=== PATIENT | female | born 1975 | race Caucasian/White ===

== ENCOUNTER 2020-09-25 17:53 | Emergency (ER) | payer OTHER, SELFPAY ==
[2020-09-25 17:55] VITALS: BP 146/81; PULSE 71; RESP 18; TEMP 36.7; O2SAT 96; BMI 47.2
--- NOTE | 2020-09-25 18:04 | ED_ITS ---
HPI - Back Pain/Injury General: Chief Complaint: Back Pain/Injury Stated Complaint: fell/recent back surgery, lower back pain Time Seen by Provider: 09/25/20 18:04 History of Present Illness: HPI Narrative: Patient is a 45-year-old female comes to the ED with lower back pain after fall. Patient has past medical history of lumbar spine surgery back in July of this year. Patient says today she was walking down some steps and fell hitting her lower back. She is now complaining of having right-sided lower back pain that radiates down the right leg. Pain is rated a 10 out of 10. Denies any bladder or bowel incontinence, pelvic anesthesia or weakness to extremities. Associated symptoms: Deny abdominal pain, chills, dysuria, fatigue, fever(s), hematuria, nausea or vomiting Review of Systems Const: Denies: fever(s), chills or fatigue Eyes: Denies: change in vision or eye discomfort ENMT: Denies: throat pain, odynophagia, nasal discharge or nasal congestion Card: Denies: chest pain, palpitations, edema, swelling of feet/ankles, dyspnea on exertion or orthopnea Resp: Denies: dyspnea, productive cough or non-productive cough GI: Denies: abdominal pain, nausea, vomiting, diarrhea, constipation or hematochezia : Denies: flank pain, dysuria or hematuria Musc: Reports: back pain (Right sided lower back pain with pain radiating down right leg.); Denies: neck pain or extremity swelling Skin/Breast: Denies: rash or new lesions Neuro: Denies: headache(s), numbness in extremities or weakness in extremities Physical Exam Const: COMMON NORMALS: no acute distress, patient oriented x3 and alert GENERAL APPEARANCE: cooperative and comfortable HENMT: COMMON NORMALS: normocephalic HEAD & SCALP: normocephalic MOUTH: Normal oral and palatal mucosa present THROAT: posterior oropharynx normal and uvula midline Eye: COMMON NORMALS: Equal, round and reactive pupils present PUPIL: Yes Equal, round and reactive pupils present Neck/C-Spine: COMMON NORMALS: supple GENERAL: Yes normal visual inspection Resp: COMMON NORMALS: normal respiratory effort, No retractions, No use of accessory muscles and clear to auscultation bilaterally AUSCULTATION: clear to auscultation bilaterally Cardio: COMMON NORMALS: regular rate, regular rhythm, S1 normal heart sound present, S2 normal heart sound present, No gallops present (Cardio), No clicks present (Cardio), No murmurs present (Cardio) and Peripheral pulses 2+ throughout RATE: regular rate RHYTHM: regular rhythm HEART SOUNDS: S1 normal heart sound present and S2 normal heart sound present PERIPHERAL PULSES: Peripheral pulses 2+ throughout GI: COMMON NORMALS: Normal to inspection, nondistended, normoactive bowel sounds present, Soft to palpation, non-tender and no masses PALPATION: Yes Soft to palpation : COMMON NORMALS: Yes no CVA tenderness BLADDER/KIDNEY EXAM: Yes no CVA tenderness Back/Pelvis: COMMON NORMALS: no CVA tenderness LUMBAR SPINE/LOWER BACK: Yes pain with ROM, Yes paraspinal muscle tenderness and Yes straight leg raise positive left Extremity: COMMON NORMALS: normal to inspection and no pedal edema Neuro: COMMON NORMALS: patient oriented x3 and moves all extremities SENSO RIUM/ORIENTATION: Yes alert Skin: GENERAL SKIN EXAM: dry skin Course Vital Signs: Vital signs: Vital Signs Temperature 98.1 F 09/25/20 17:55 Pulse Rate 67 09/25/20 20:00 Respiratory Rate 14 09/25/20 20:00 Blood Pressure 149/86 09/25/20 20:00 Pulse Oximetry 97 09/25/20 20:00 MDM - Back Pain/Injury MDM Narrative: Medical decision making narrative: Patient is a 45-year-old female comes to the ED with lower back pain that radiates down into her right leg after a fall. Patient has a history of a recent lower back surgery within the last [address] of the lumbar spine shows no acute fractures and surgical site appears normal postop. Patient diagnosed with lumbar radiculopathy and given a shot of Toradol and Solu-Medrol while here in the ED. She was discharged with Robaxin and Medrol Dosepak. Patient told to follow-up with PCP in 7 to 10 days. Return to ED precautions given. Patient understood and agreed with plan. Imaging Data^: Other CT: Attestation: I personally reviewed and interpreted this imaging study as follows: Radiologist's impression: [address] [address] [address] Scan Report Signed Patient: Ambar Quesada Unit #: [id number] : 1975 Age/Sex: 45 / F ADM Date: 09/25/20 Loc: ER Room/Bed: Attending Dr: Ordering Provider/Ordering MD: Aaron Gaines Date of Service: 09/25/20 Procedure(s): CT lumbar spine wo con* [id number] Accession Number(s): [id number] Report Number: [id number] PROCEDURE INFORMATION: Exam: CT Lumbar Spine Without Contrast Exam date and time: 09/25/2020 6:28 PM Age: 45 years old Clinical indication: Injury or trauma; Fall; Blunt trauma (contusions or hematomas); Prior surgery; Surgery date: 1-6 months; Surgery type: L-spine SX in jul; Additional info: Fall with recent lumbar sugery TECHNIQUE: Imaging protocol: Computed tomography images of the lumbar spine without contrast. Radiation optimization: All CT scans at this facility use at least one of these dose optimization techniques: automated exposure control; mA and/or kV adjustment per patient size (includes targeted exams where dose is matched to clinical indication); or iterative reconstruction. COMPARISON: No relevant prior studies available. RADIATION DOSE METRICS: Total DLP (mGy-cm): 2715.5 FINDINGS: Vertebrae: There is dextroscoliosis. There is no acute fracture or subluxation. There is a satisfactory appearance of the postoperative changes at L5-S1 with pedicle screws, posterior rods and interbody spacer. There is severe endplate degenerative changes at L3-L4. There is a prominent Schmorl's node in the superior aspect of L4. Discs/Spinal canal/Neural foramina: There is a small disc bulge at L3-L4 without severe stenosis. There is mild foraminal narrowing. Sacrum/coccyx: There is symmetric moderate to severe degenerative changes in the sacroiliac joints. Soft tissues: Unremarkable. CT/CT lumbar spine wo con* [id number] IMPRESSION: No acute abnormality. There is a satisfactory appearance of the postoperative changes in the lumbar spine. No acute bony abnormality. Radiation Dose CTDIVOL = (mGy): DLP = 2715.5 (mGy-cm) Dictated By: Sirena Salguero Signed By: Sirena Salguero Signed Date/Time: 09/25/201917 DD/ 16 Discharge Plan Discharge Patient Disposition: Home Clinical Impression: Lumbar radiculopathy Condition: Stable Prescriptions: New methocarbamol 750 mg tablet 750 mg PO Q8H Qty: 30 RF: 0 Medrol (Ubaldo) 4 mg tablets,dose pack See Rx Instructions .ROUTE .COMPLEX Qty: 21 RF: 0 Discharge Orders: Discharge Order (Routine); Ordered 09/25/20 Ordered By: Aaron Gaines Discharge Diet: Regular Discharge Activity: Increase activity as tolerated Patient Instructions: Lumbar Radiculopathy (ED) Activity Restrictions/Additional Instructions: Follow-up with medical provider as directed in 7 to 10 days. Take medications as prescribed. Rest and ice sore spot on back. Return to the ER or your medical provider if condition worsens. Please read and understand discharge instructions. If any questions, please ask. Coding Level of Care Code ED Human Relations Professor for Francois Fwmuriel Exam Comprehensive
--- NOTE | 2020-09-25 18:10 | CTR_ITS ---
PROCEDURE INFORMATION: Exam: CT Lumbar Spine Without Contrast Exam date and time: 09/25/2020 6:28 PM Age: 45 years old Clinical indication: Injury or trauma; Fall; Blunt trauma (contusions or hematomas); Prior surgery; Surgery date: 1-6 months; Surgery type: L-spine SX in jul; Additional info: Fall with recent lumbar sugery TECHNIQUE: Imaging protocol: Computed tomography images of the lumbar spine without contrast. Radiation optimization: All CT scans at this facility use at least one of these dose optimization techniques: automated exposure control; mA and/or kV adjustment per patient size (includes targeted exams where dose is matched to clinical indication); or iterative reconstruction. COMPARISON: No relevant prior studies available. RADIATION DOSE METRICS: Total DLP (mGy-cm): 2715.5 FINDINGS: Vertebrae: There is dextroscoliosis. There is no acute fracture or subluxation. There is a satisfactory appearance of the postoperative changes at L5-S1 with pedicle screws, posterior rods and interbody spacer. There is severe endplate degenerative changes at L3-L4. There is a prominent Schmorl's node in the superior aspect of L4. Discs/Spinal canal/Neural foramina: There is a small disc bulge at L3-L4 without severe stenosis. There is mild foraminal narrowing. Sacrum/coccyx: There is symmetric moderate to severe degenerative changes in the sacroiliac joints. Soft tissues: Unremarkable. CT/CT lumbar spine wo con* [id number] IMPRESSION: No acute abnormality. There is a satisfactory appearance of the postoperative changes in the lumbar spine. No acute bony abnormality. Radiation Dose CTDIVOL = (mGy): DLP = 2715.5 (mGy-cm)
[2020-09-25] MEDS: ketorolac 60 mg/2 mL INJ IM (18:34)
[2020-09-25 20:00] VITALS: BP 149/86; PULSE 67; RESP 14; O2SAT 97
== END 2020-09-25 20:01 | disposition home or self-care (01) ==
PROVIDERS: Emergency Provider Physician Assistant
DX: M54.16 Radiculopathy, lumbar region (principal); W10.9XXA Fall (on) (from) unspecified stairs and steps, initial encounter; Z98.890 Other specified postprocedural states
CPT/HCPCS: 12345; 72131; 96372; 99281; 99283; J1885; J2930

== ENCOUNTER 2020-12-07 10:51 | Emergency (ER) | payer OTHER, SELFPAY ==
[2020-12-07] VITALS (7 sets, daily range): BP systolic 143–155; BP diastolic 59–85; PULSE 60–96; RESP 17–18; TEMP 36.3; O2SAT 98–99; BMI 44.4
--- NOTE | 2020-12-07 10:54 | XR_ITS ---
WS: [id number] Portable AP upright chest, 12/07/2020 Clinical Data: chest pain Comparison: None. Findings: No nodules, masses or effusions are seen. The heart is normal. The pulmonary vascularity is not increased. No pneumonia or pneumothorax is seen. Monitor leads are on the chest wall. XR/XR chest 1V portable [id number] Impression: Negative chest.
--- NOTE | 2020-12-07 10:54 | ECG_ITS ---
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 Measurements Intervals [place] Rate: 61 P: 47 MN: 180 QRS: 49 QRSD: 84 T: 32 QT: 393 QTc: 397 Interpretive Statements SINUS RHYTHM LOW QRS VOLTAGE IN PRECORDIAL LEADS [QRS DEFLECTION < 1.0 mV IN CHEST LEADS] SEPTAL MYOCARDIAL INFARCTION , OF INDETERMINATE AGE [40+ ms Q WAVE IN V1/V2] No previous ECG available for comparison Electronically Signed On 12-07-2020 19:11:46 DIAGRAMMER by Carlos Elena M.D. [id number] f
--- NOTE | 2020-12-07 11:19 | XR_ITS ---
WS: [id number] Sternum, 2 views, 12/07/2020 Clinical Data: sternal pain Comparison: None. Findings: The sternum is intact. No fractures are seen. There is no bone destruction or erosion. XR/XR sternum min 2V [id number] Impression: Negative sternum.
--- NOTE | 2020-12-07 11:24 | W.ED.CHESTPA ---
HPI - Chest Pain General: Chief Complaint: Chest Pain Stated Complaint: CHEST PAIN/TIGHTNESS Time Seen by Provider: 12/07/20 11:02 Source: patient Mode of arrival: ambulatory Limitations: no limitations History of Present Illness: HPI narrative: Patient is a 45-year-old female with a prior history of pleurisy who presents to the emergency department with complaints of sternal pain. Pain has been present for 2 days and has been constant. Pain is worse on deep inspiration. Pain is nonradiating, no dizziness, no diaphoresis, no nausea or vomiting. MD complaint: chest pain Onset (ago): day(s) (2) Timing of current episode: constant Prior episodes: No Onset: during rest Pain location: other (sternal) Pain radiation: none Severity: moderate Quality: sharp Relieving factors: nothing Exacerbating factors: movement Associated symptoms: Deny abdominal pain, diaphoresis, dyspnea, fever(s), leg edema, nausea, palpitations, sense of impending doom, syncope or vomiting Treatment prior to arrival: none Review of Systems General: Reports: 10 or more systems reviewed and unremarkable except in HPI and below Const: Denies: fever(s) or diaphoresis Eyes: Denies: change in vision or blurry vision ENMT: Denies: throat pain, enlarged tonsils, odynophagia, hoarseness, mouth pain or swelling of lips/tongue Card: Denies: palpitations or syncope Resp: Denies: dyspnea GI: Denies: abdominal pain, nausea or vomiting : Denies: flank pain, difficulty voiding, dysuria, urinary frequency, urinary urgency or urinary hesitancy Musc: Denies: neck pain, back pain or extremity swelling Skin/Breast: Denies: rash, pruritus or erythema Neuro: Denies: headache(s), numbness in extremities or weakness in extremities Endo: Denies: polyuria, polydipsia or tired all the time Physical Exam Const: COMMON NORMALS: no acute distress, average body habitus, patient oriented x3, no limitations, healthy appearing, alert and well nourished HENMT: COMMON NORMALS: normocephalic, atraumatic and moist oral mucous membranes HEAD & SCALP: normocephalic and atraumatic Neck/C-Spine: COMMON NORMALS: no meningeal signs and no JVD Chest: COMMONS NORMALS: normal inspection of the chest CHEST: Yes tenderness sternum Resp: COMMON NORMALS: normal respiratory effort, No retractions, No use of accessory muscles, clear to auscultation bilaterally and percussion normal AUSCULTATION: clear to auscultation bilaterally PERCUSSION: percussion normal Cardio: COMMON NORMALS: no JVD, regular rate, regular rhythm, S1 normal heart sound present, S2 normal heart sound present, No gallops present (Cardio), No clicks present (Cardio), No murmurs present (Cardio), No rub (Cardio) and Peripheral pulses 2+ throughout RATE: regular rate RHYTHM: regular rhythm HEART SOUNDS: S1 normal heart sound present and S2 normal heart sound present PERIPHERAL PULSES: Peripheral pulses 2+ throughout GI: COMMON NORMALS: Normal to inspection, nondistended, normoactive bowel sounds present, Soft to palpation, non-tender, No hepatosplenomegaly present, no masses and no bruits PALPATION: Yes Soft to palpation and Yes No hepatosplenomegaly present Extremity: COMMON NORMALS: normal to inspection, full ROM, capillary refill normal, no calf tenderness and no pedal edema Neuro: COMMON NORMALS: patient oriented x3 SENSORIUM/ORIENTATION: Yes alert MENINGEAL SIGNS: Yes no meningeal signs Course Reevaluation(s): Reevaluation #1: DIscussed her lab and imaging findings with her. Negative for acute findings. I believe she has costochondritis and will be managed as such. We will give her a prescription for prednisone to see if that helps but she is advised that she needs to manage it conservatively. She is to follow-up with her primary care provider. She voiced understanding and is in agreement with the plan. Time: 14:41 Vital Signs: Vital signs: Vital Signs Temperature 97.3 F L 12/07/20 10:56 Pulse Rate 66 12/07/20 15:00 Respiratory Rate 18 12/07/20 15:00 Blood Pressure 144/84 12/07/20 15:00 Pulse Oximetry 98 12/07/20 15:00 MDM - Chest Pain MDM Narrative: Medical decision making narrative: 45-year-old female patient with no prior cardiac history presents to the emergency department with chest pain. Evaluation in the emergency department is consistent with a musculoskeletal cause for her pain, likely costochondritis. She is managed conservatively with oral corticosteroids. She is discharged home and is to follow-up with her primary care provider. Medical Records: Attestation: I reviewed the patient's medical records. Lab Data: Attestation: I reviewed the patient's lab results. Labs: Lab Results 12/07/20 12/07/20 12/07/20 Range/Units 11:12 11:30 11:30 WBC 10.1 H (4.0-10.0) 10^3/ uL RBC 4.97 (4.1-5.3) 10^6/u L Hgb 14.2 (11.5-15.3) g/dL Hct 45.5 (37.0-47.0) % MCV 91.5 (81-99) fL MCH 28.6 (28.0-34.0) pg MCHC 31.2 (30.0-36.0) g/dL RDW 14.9 (12.1-15.1) % Plt Count 310 (130-400) 10^3/c mm MPV 10.0 (7.4-10.4) fL Neut % (Auto) 65.3 % Lymph % (Auto) 25.6 % [place] % (Auto) 5.2 % Eos % (Auto) 2.6 % Baso % (Auto) 0.6 % Neut # (Auto) 6.61 (1.8-7.7) 10^3/u L Lymph # (Auto) 2.6 (0.8-4.8) 10^3/u L [place] # (Auto) 0.5 (0.2-0.9) 10^3/u L Eos # (Auto) 0.3 (0.0-0.8) 10^3/u L Baso # (Auto) 0.1 (0.0-0.1) 10^3/u L Nucleated RBC % (a uto) 0 % Nucleated RBCs # 0.0 /100WBC D-Dimer 1.01 H (0-0.59) ug/mIFE U Sodium 140 (136-145) mmol/L Potassium 4.0 (3.5-5.1) mmol/L Chloride 101 (98-107) mmol/L Carbon Dioxide 31 H (22-29) mmol/L Anion Gap 12.0 (5-19) BUN 13 (6-20) mg/dL Creatinine 0.6 (0.5-0.9) mg/dL GFR Calculation 107.6 (90-130) mL/min Glucose 96 (65-115) mg/dL Calculated Osmolal ity 290 (285-295) mOsm/k g Calcium 9.4 (8.5-10.5) mg/dL Total Bilirubin 0.4 (0.15-1.2) mg/dL AST 27 (0-32) U/L ALT 29 (0-33) U/L Alkaline Phosphata se 122 H (35-105) IU/L Troponin T Baselin e (0-10) ng/L Troponin T 120 Min [place] (0-10) ng/L Delta Troponin T (0-10) ABS# Total Protein 7.7 (6.6-8.7) g/dL Albumin 4.4 (3.5-5.2) g/dL Globulin 3.3 (1.3-4.6) g/dL HCG, Qual (Negative) 12/07/20 12/07/20 12/07/20 Range/Units 11:30 11:30 13:25 WBC (4.0-10.0) 10^3/ uL RBC (4.1-5.3) 10^6/u L Hgb (11.5-15.3) g/dL Hct (37.0-47.0) % MCV (81-99) fL MCH (28.0-34.0) pg MCHC (30.0-36.0) g/dL RDW (12.1-15.1) % Plt Count (130-400) 10^3/c mm MPV (7.4-10.4) fL Neut % (Auto) % Lymph % (Auto) % [place] % (Auto) % Eos % (Auto) % Baso % (Auto) % Neut # (Auto) (1.8-7.7) 10^3/u L Lymph # (Auto) (0.8-4.8) 10^3/u L [place] # (Auto) (0.2-0.9) 10^3/u L Eos # (Auto) (0.0-0.8) 10^3/u L Baso # (Auto) (0.0-0.1) 10^3/u L Nucleated RBC % (a uto) % Nucleated RBCs # /100WBC D-Dimer (0-0.59) ug/mIFE U Sodium (136-145) mmol/L Potassium (3.5-5.1) mmol/L Chloride (98-107) mmol/L Carbon Dioxide (22-29) mmol/L Anion Gap (5-19) BUN (6-20) mg/dL Creatinine (0.5-0.9) mg/dL GFR Calculation (90-130) mL/min Glucose (65-115) mg/dL Calculated Osmolal ity (285-295) mOsm/k g Calcium (8.5-10.5) mg/dL Total Bilirubin (0.15-1.2) mg/dL AST (0-32) U/L ALT (0-33) U/L Alkaline Phosphata se (35-105) IU/L Troponin T Baselin e 8 (0-10) ng/L Troponin T 120 Min [place] 8.32 (0-10) ng/L Delta Troponin T 0.32 (0-10) ABS# Total Protein (6.6-8.7) g/dL Albumin (3.5-5.2) g/dL Globulin (1.3-4.6) g/dL HCG, Qual Negative (Negative) Imaging Data^: CTA Chest: Attestation: I personally reviewed and interpreted this imaging study as follows: Radiologist's impression: [address] [address] [address] Scan Report Signed Patient: Reji Quesada #: [id number] : 1975Acct#:[id number] Age/Sex: 45 / FADM Date: 12/07/20 Loc: [facility]/Bed: Attending Dr: Ordering Provider/Ordering MD: Chris Buchanan MD, [facility] Date of Service: 12/07/20 Procedure(s): CT angio chest PE protcl [id number] Accession Number(s): [id number] Report Number: [id number] WS: [id number] CT CHEST ANGIOGRAPHY WITH REFORMATS HISTORY: SOB, chest pain TECHNIQUE: Contiguous axial images are obtained through the chest during arterial injection of intravenous contrast. Images are reconstructed to evaluate the pulmonary arteries. MIP imaging also reviewed. All CT scans at [facility] use at least one of these dose optimization techniques: automated exposure control; mA and/or kV adjustment per patient size (includes targeted exams where dose is matched to clinical indication); or iterative reconstruction. CONTRAST: Omnipaque 350; 95 mL IV. DLP: 563.18 mGy.cm COMPARISON: None available. Good opacification of the pulmonary arteries. There are no filling defects or pulmonary emboli. Pulmonary artery size is equal to the aorta. Normal-sized thoracic aorta. No dissection or aneurysm. Normal size heart. No pericardial or pleural effusions. No mediastinal or hilar adenopathy. Lungs are clear. No pulmonary mass, pneumonia or nodule. No hiatal hernia. Hepatic steatosis. No abnormality in the upper abdomen. Mild thoracolumbar scoliosis. CT/CT angio chest PE protcl [id number] IMPRESSION: 1. No pulmonary embolism. 2. No pneumonia. Dictated By:Apolonia Galloway DO Signed By:Apolonia Galloway DOSigned Date/Time:12/07/20 1340 DD/ 1332 CXR: Attestation: I personally reviewed and interpreted this imaging study as follows: Radiologist's impression: [address] [address] XRay Report Signed Patient: Reji Quesada #: [id number] : 1975Acct#:[id number] Age/Sex: 45 / FADM Date: 12/07/20 Loc: [facility]/Bed: Attending Dr: Ordering Provider/Ordering MD: Heather Aguero Date of Service: 12/07/20 Procedure(s): XR chest 1V portable [id number] Accession Number(s): [id number] Report Number: [id number] WS: [id number] Portable AP upright chest, 12/07/2020 Clinical Data: chest pain Comparison: None. Findings: No nodules, masses or effusions are seen. The heart is normal. The pulmonary vascularity is not increased. No pneumonia or pneumothorax is seen. Monitor leads are on the chest wall. XR/XR chest 1V portable [id number] Impression: Negative chest. Dictated By:Iraida Finnegan MD Signed By:Iraida Finnegan MDSigned Date/Time:12/07/20 1107 DD/ 1107 Other Xray: Attestation: I personally reviewed and interpreted this imaging study as follows: Radiologist's impression: [facility] [address] [facility] [place] [address] XRay Report Signed Patient: Reji Quesada #: [id number] : 1975Acct#:[id number] Age/Sex: 45 / FADM Date: 12/07/20 Loc: [facility]oom/Bed: Attending Dr: Ordering Provider/Ordering MD: Chris Buchanan MD, [facility] Date of Service: 12/07/20 Procedure(s): XR sternum min 2V 74186 Accession Number(s): [id number] Report Number: [id number] WS: [id number] Sternum, 2 views, 12/07/2020 Clinical Data: sternal pain Comparison: None. Findings: The sternum is intact. No fractures are seen. There is no bone destruction or erosion. XR/XR sternum min 2V 45928 Impression: Negative sternum. Dictated By:Iraida Finnegan MD Signed By:Iraida Finnegan MDSigned Date/Time:12/07/20 1143 DD/ 1141 EKG Data^: EKG 1: Attestation: I personally reviewed and interpreted this EKG as follows: EKG interpretation date: 12/07/20 EKG interpretation time: 10:58 Prior EKG tracings: not available for review Interpretation: NSR HR [address] changes. EKG 2: Attestation: I personally reviewed and interpreted this EKG as follows: EKG interpretation date: 12/07/20 EKG interpretation time: 12:33 Prior EKG tracings: available for review Interpretation: Sinus bradycardia. Heart rate [address] changes. No significant changes from earlier. Discharge Plan Discharge Patient Disposition: Home Clinical Impression: Costalchondritis Condition: Stable Prescriptions: New prednisone 20 mg tablet 40 mg PO DAILY Qty: 10 RF: 0 Continued Celebrex 200 mg Capsule 200 mg PO DAILY@08 RF: 0 AcipHex 20 mg Tablet,Delayed Release (Dr/Ec) 20 mg PO DAILY@17 RF: 0 tizanidine 4 mg Tablet 4 mg PO BEDTIME RF: 0 Discharge Orders: Discharge ED (Routine); Ordered 12/07/20 Ordered By: Chris Buchanan Discharge Diet: Usual diet Discharge Activity: Increase activity as tolerated Patient Instructions: Costochondritis (ED) Activity Restrictions/Additional Instructions: Return for any new or worsening symptoms. Take the medication as prescribed. Follow-up with your primary care provider within 3 days. Coding Level of Care Code ED Film Printer for [place] Fwd Exam Comprehensive
[2020-12-07 11:36] LABS: Basophils # 0.1 10^3/uL (0.0-0.1); Basophils % 0.6 %; Eosinophils # 0.3 10^3/uL (0.0-0.8); Eosinophils % 2.6 %; Hematocrit 45.5 % (37.0-47.0); Hemoglobin 14.2 g/dL (11.5-15.3); Lymphocytes # 2.6 10^3/uL (0.8-4.8); Lymphocytes % 25.6 %; Mean Corpuscular HGB Conc 31.2 g/dL (30.0-36.0); Mean Corpuscular Hemoglobin 28.6 pg (28.0-34.0); Mean Corpuscular Volume 91.5 fL (81-99); Monocytes # 0.5 10^3/uL (0.2-0.9); Monocytes % 5.2 %; Neutrophils # 6.61 10^3/uL (1.8-7.7); Neutrophils % 65.3 %; Nucleated Red Blood Cells % 0 %; Platelet Count 310 10^3/cmm (130-400); Red Blood Count 4.97 10^6/uL (4.1-5.3); Red Cell Distribution Width 14.9 % (12.1-15.1); White Blood Count 10.1 10^3/uL (4.0-10.0)
[2020-12-07 11:48] LABS: HCG, Serum Qual Negative (Negative)
[2020-12-07 11:59] LABS: Alanine Aminotransferase 29 U/L (0-33); Albumin Level 4.4 g/dL (3.5-5.2); Alkaline Phosphatase 122 IU/L (35-105); Aspartate Amino Transferase 27 U/L (0-32); Blood Urea Nitrogen 13 mg/dL (6-20); Calcium 9.4 mg/dL (8.5-10.5); Carbon Dioxide 31 mmol/L (22-29); Chloride 101 mmol/L (98-107); Globulin 3.3 g/dL (1.3-4.6); Glomerular Filtration Rate 107.6 mL/min (90-130); Glucose 96 mg/dL (65-115); Osmolality Calculated 290 mOsm/kg (285-295); Sodium 140 mmol/L (136-145); Total Bilirubin 0.4 mg/dL (0.15-1.2); Total Protein 7.7 g/dL (6.6-8.7)
[2020-12-07 12:00] LABS: D Dimer 1.01 ug/mIFEU (0-0.59)
[2020-12-07 12:01] LABS: Troponin(5th) Baseline 8 ng/L (0-10)
--- NOTE | 2020-12-07 12:54 | ECG_ITS ---
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 Measurements Intervals [place] Rate: 57 P: 55 [place]: 189 QRS: 24 QRSD: 80 T: 26 QT: 402 QTc: 393 Interpretive Statements SINUS BRADYCARDIA POSSIBLE LEFT ATRIAL ENLARGEMENT [-0.1mV P WAVE IN V1/V2] LOW QRS VOLTAGE IN PRECORDIAL LEADS [QRS DEFLECTION < 1.0 mV IN CHEST LEADS] POSSIBLE RIGHT VENTRICULAR CONDUCTION DELAY [RSR (QR) IN V1/V2] ANTEROSEPTAL MYOCARDIAL INFARCTION , PROBABLY OLD [40+ ms Q WAVE IN V1-V4] No previous ECG available for comparison Electronically Signed On 12-07-2020 19:17:23 ONLINE MARKETING DIRECTOR by Carlos Elena M.D. [id number]
--- NOTE | 2020-12-07 12:59 | CT_ITS ---
WS: [id number] CT CHEST ANGIOGRAPHY WITH REFORMATS HISTORY: SOB, chest pain TECHNIQUE: Contiguous axial images are obtained through the chest during arterial injection of intrav enous contrast. Images are reconstructed to evaluate the pulmonary arteries. MIP imaging also reviewe d. All CT scans at [facility] use at least one of these dose optimization techniques: aut omated exposure control; mA and/or kV adjustment per patient size (includes targeted exams where dose is matched to clinical indication); or iterative reconstruction. CONTRAST: Omnipaque 350; 95 mL IV. DLP: 563.18 mGy.cm COMPARISON: None available. Good opacification of the pulmonary arteries. There are no filling defects or pulmonary emboli. Pulmonary artery size is equal to the aorta. Normal-sized thoracic aorta. No dissection or aneurysm. Normal size heart. No pericardial or pleural effusions. No mediastinal or hilar adenopathy. Lungs are clear. No pulmonary mass, pneumonia or nodule. No hiatal hernia. Hepatic steatosis. No abnormality in the upper abdomen. Mild thoracolumbar scoliosis. CT/CT angio chest PE protcl [id number] IMPRESSION: 1. No pulmonary embolism. 2. No pneumonia.
[2020-12-07] MEDS: iohexol 350 mg/mL 100 mL Btl IV (13:21)
[2020-12-07 14:02] LABS: Troponin 5 2HR 8.32 ng/L (0-10); Troponin 5 2HR Delta 0.32 ABS# (0-10)
[2020-12-07] MEDS: ketorolac 30 mg/mL INJ IVP (14:21)
== END 2020-12-07 15:01 | disposition home or self-care (01) ==
PROVIDERS: Physician Assistant; Emergency Provider Family Medicine
DX: M94.0 Chondrocostal junction syndrome [Tietze] (principal)
CPT/HCPCS: 12345; 36415; 71045; 71120; 71275; 80053; 84484; 84703; 85025; 85378; 93005; 96374; 99282; 99284; J1885; Q9967

== ENCOUNTER → 2021-05-09 09:20 | Outpatient (BNVA) | payer OTHER, SELFPAY | PROVIDERS: PCP Family Medicine Adult Medicine; Referring Provider Family Medicine Adult Medicine; Visit Provider Anesthesiology Pain Medicine | DX: M54.2 Cervicalgia (principal); M79.622 Pain in left upper arm; M54.9 Dorsalgia, unspecified; R20.0 Anesthesia of skin; M96.1 Postlaminectomy syndrome, not elsewhere classified; Z98.890 Other specified postprocedural states | CPT/HCPCS: 99205 ==

== ENCOUNTER 2021-05-16 15:01 | Outpatient (CLI) | payer OTHER, SELFPAY ==
--- NOTE | 2021-05-16 15:05 | XR_ITS ---
WS: [id number] Lumbar spine, 3 views, 05/16/2021 Clinical Data: pain Comparison: None. Findings: No compression fractures or subluxation is seen. No disc space narrowing is seen. The transverse proc esses and SI joints are normal. There is a dextroscoliosis. There is osteoarthritic change of the left side of the vertebral bodies L 2-L5. There is a posterior lumbar fusion with bilateral pedicle screws at L5-S1 with connecting rods. There is an artificial disc at L5-S1. XR/XR lumbar spine 2-3V* [id number] Impression: 1. Dextroscoliosis with osteoarthritis at L2-L4. 2. Posterior lumbar fusion at L5-S1 with a disc spacer at L5-S1.
--- NOTE | 2021-05-16 15:05 | XR_ITS ---
WS: [id number] Thoracic spine, 3 views, 05/16/2021 Clinical Data: pain Comparison: None. Findings: No compression fractures are seen. The disc heights are normal. The paravertebral regions are normal. XR/XR thoracic spine 3V* [id number] Impression: Negative thoracic spine.
== END 2021-05-16 15:02 | disposition home or self-care (01) ==
LOC: RAD 15:02
PROVIDERS: PCP Family Medicine Adult Medicine; Visit Provider Nurse Practitioner
DX: M54.6 Pain in thoracic spine (principal); M54.5 Low back pain; Z98.890 Other specified postprocedural states; M41.86 Other forms of scoliosis, lumbar region; M47.816 Spondylosis without myelopathy or radiculopathy, lumbar region; M43.27 Fusion of spine, lumbosacral region
CPT/HCPCS: 72072; 72100

== ENCOUNTER → 2021-07-09 08:42 | Outpatient (BNVA) | payer OTHER, SELFPAY | PROVIDERS: PCP Family Medicine Adult Medicine; Visit Provider Anesthesiology Pain Medicine | DX: M54.2 Cervicalgia (principal); M54.5 Low back pain; M79.602 Pain in left arm; R20.0 Anesthesia of skin; M96.1 Postlaminectomy syndrome, not elsewhere classified; M79.604 Pain in right leg; M79.605 Pain in left leg; Z98.890 Other specified postprocedural states | CPT/HCPCS: 99214 ==

== ENCOUNTER → 2021-08-06 08:40 | Outpatient (BNVA) | payer OTHER, SELFPAY | PROVIDERS: PCP Family Medicine Adult Medicine; Visit Provider Anesthesiology Pain Medicine | DX: M54.2 Cervicalgia (principal); M25.541 Pain in joints of right hand; M25.542 Pain in joints of left hand; M54.5 Low back pain; M96.1 Postlaminectomy syndrome, not elsewhere classified; R20.0 Anesthesia of skin; Z98.890 Other specified postprocedural states | CPT/HCPCS: 99214 ==

== ENCOUNTER → 2021-08-07 09:09 | Outpatient (BNVA) | payer OTHER, SELFPAY | PROVIDERS: PCP Family Medicine Adult Medicine; Visit Provider Family Medicine Adult Medicine | DX: E66.01 Morbid (severe) obesity due to excess calories (principal); Z68.43 Body mass index [BMI] 50.0-59.9, adult; M15.9 Polyosteoarthritis, unspecified; M13.0 Polyarthritis, unspecified; Z98.890 Other specified postprocedural states; K21.9 Gastro-esophageal reflux disease without esophagitis; Z13.6 Encounter for screening for cardiovascular disorders; F41.8 Other specified anxiety disorders | CPT/HCPCS: 80053; 83036; 84443; 85007; 85027; 85651; 86140; 86160; 86162; 86235; 86255; 86376; 86431 ==

== ENCOUNTER → 2021-10-29 09:55 | Outpatient (BNVA) | payer OTHER, SELFPAY | PROVIDERS: PCP Family Medicine Adult Medicine; Visit Provider Anesthesiology Pain Medicine | DX: M54.2 Cervicalgia (principal); R20.0 Anesthesia of skin; M54.50 Low back pain, unspecified; M96.1 Postlaminectomy syndrome, not elsewhere classified; M53.3 Sacrococcygeal disorders, not elsewhere classified; Z98.890 Other specified postprocedural states; M79.602 Pain in left arm; M79.604 Pain in right leg; M79.605 Pain in left leg | CPT/HCPCS: 99214 ==

== ENCOUNTER → 2021-11-19 13:22 | Outpatient (BNVA) | payer OTHER, SELFPAY | PROVIDERS: PCP Family Medicine Adult Medicine; Visit Provider Anesthesiology Pain Medicine | DX: M54.16 Radiculopathy, lumbar region (principal); Z98.890 Other specified postprocedural states | CPT/HCPCS: 64483; 64484; J1100; J3490 ==

== ENCOUNTER 2022-10-28 18:52 | Emergency (ER) | payer OTHER, SELFPAY ==
[2022-10-28 19:11] VITALS: BP 159/98; PULSE 90; RESP 20; TEMP 36.7; O2SAT 95; BMI 49.1
--- NOTE | 2022-10-28 19:18 | XRR_ITS ---
PROCEDURE INFORMATION: Exam: XR Chest Exam date and time: 10/28/2022 7:26 PM Age: 47 years old Clinical indication: Shortness of breath; Additional info: SOB TECHNIQUE: Imaging protocol: Radiologic exam of the chest. Views: 1 view. COMPARISON: CR XR chest 1V portable [id number] 12/07/2020 10:55 AM FINDINGS: Lungs: Unremarkable. No consolidation. Pleural spaces: Unremarkable. No pleural effusion. No pneumothorax. Heart/Mediastinum: Unremarkable. No cardiomegaly. Bones/joints: Unremarkable. XR/XR chest 1V portable [id number] IMPRESSION: No acute findings.
--- NOTE | 2022-10-28 19:24 | W.ED.URI ---
HPI - URI/Sore Throat General: Chief Complaint: Upper Respiratory Infection Stated Complaint: Tooth or Sinus Pain Time Seen by Provider: 10/28/22 19:08 Source: patient Mode of arrival: ambulatory Limitations: no limitations History of Present Illness: 47-year-old female states she has had right maxillary pain that radiated to her teeth over the last week. States she has had nasal congestion and her pain is very sharp in nature much worse with palpation over her right cheekbone. Denies any fever denies headache. Associated symptoms: Reports nasal congestion and sinus pain; Deny abdominal pain, chills, chest pain, diarrhea, fever(s), headache(s), nausea or vomiting Review of Systems Const: Denies: fever(s), chills, body aches or change in appetite Eyes: Denies: blurry vision or eye discomfort ENMT: Reports: mouth pain, nasal congestion and sinus pain Card: Denies: chest pain Resp: Denies: dyspnea GI: Denies: abdominal pain, nausea, vomiting or diarrhea : Denies: dysuria Musc: Denies: neck pain or back pain Skin/Breast: Denies: rash Neuro: Denies: headache(s) Psych: Denies: depression Nicolás/Lymph: Denies: easy bruising All/Imm: Denies: urticaria PFSH ED PFSH: Medical History Anxiety Back pain with history of spinal surgery GERD (gastroesophageal reflux disease) Left arm numbness Morbid obesity with BMI of 50.0-59.9, adult Multiple joint disease Osteoarthritis involving multiple joints on both sides of body Surgical History Hx of hysterectomy, total Family History Other CAD (coronary artery disease) Cancer Diabetes Hyperlipidemia Stroke Social History Smoking and tobacco status: never smoked Alcohol intake: current Alcohol intake frequency: holidays/special occasions only Marital status: / Number of children: 2 Number of grandchildren: 3 service: No Current occupational status: unemployed and disabled Course Vital Signs: Vital signs: Vital Signs Temperature 98.1 F 10/28/22 19:11 Pulse Rate 90 10/28/22 19:11 Respiratory Rate 20 H 10/28/22 19:11 Blood Pressure 159/98 10/28/22 19:11 Pulse Oximetry 95 10/28/22 19:11 Oxygen Delivery Me thod 10/28/22 19:11 MDM - URI/Sore Throat Medical Decision Making Patient presents here with sinus infection she is point tender over right maxillary sinus likely causing for dental pain dental exam is normal will start on Keflex she stable for discharge she is return if worsening. Discharge Plan Discharge Patient Disposition: Home Clinical Impression: Sinusitis Condition: Stable Prescriptions: New cephalexin 500 mg capsule 500 mg PO TID 7 Days Qty: 21 0RF naproxen [Naprosyn] 500 mg tablet 500 mg PO BID PRN (Reason: pain) Qty: 20 0RF No Action pantoprazole 40 mg tablet,delayed release (DR/EC) 40 mg PO QAM Qty: 30 5RF baclofen 20 mg tablet 20 mg PO .qhs 30 Days Qty: 30 3RF calcium carbonate [Tums] 200 mg calcium (500 mg) tablet,chewable 200 mg PO BID 30 Days Qty: 60 5RF ondansetron 4 mg tablet,disintegrating See Rx Instructions .ROUTE .COMPLEX Qty: 20 0RF Dose Instruction: DISSOLVE 1 TABLET IN MOUTH EVERY 8 HOURS NEEDED FOR NAUSEA AND VOMITING Rx Instructions: DISSOLVE 1 TABLET IN MOUTH EVERY 8 HOURS NEEDED FOR NAUSEA AND VOMITING ketorolac 10 mg tablet See Rx Instructions .ROUTE .COMPLEX Qty: 20 0RF Dose Instruction: TAKE 1 TABLET BY MOUTH EVERY 6 HOURS FOR 5 DAYS NEEDED FOR MODERATE PAIN Rx Instructions: TAKE 1 TABLET BY MOUTH EVERY 6 HOURS FOR 5 DAYS NEEDED FOR MODERATE PAIN duloxetine [Cymbalta] 30 mg capsule,delayed release(DR/EC) 30 mg PO DAILY Qty: 30 2RF Discharge Orders: Discharge ED (Routine); Ordered 10/28/22 Ordered By: Desiree Bae Discharge Diet: Advance as tolerated Discharge Activity: Resume usual activity Patient Instructions: Sinusitis (ED) Coding Level of Care Code ED Competitive Athlete for Francois Jaramillo
[2022-10-28] MEDS: naproxen 500 mg Tablet PO (19:30)
[2022-10-28] MEDS: dexamethasone 10 mg/mL INJ IM (19:31)
[2022-10-28] MEDS: cephALEXin 500 mg Capsule PO (19:31)
--- NOTE | 2022-11-06 17:51 | W.ED.URI ---
HPI - URI/Sore Throat General: Chief Complaint: Upper Respiratory Infection Stated Complaint: Tooth or Sinus Pain Time Seen by Provider: 10/28/22 19:08 Source: patient Mode of arrival: ambulatory Limitations: no limitations History of Present Illness: . PFS ED PFSH: Medical History Anxiety Back pain with history of spinal surgery GERD (gastroesophageal reflux disease) Left arm numbness Morbid obesity with BMI of 50.0-59.9, adult Multiple joint disease Osteoarthritis involving multiple joints on both sides of body Surgical History Hx of hysterectomy, total Family History Other CAD (coronary artery disease) Cancer Diabetes Hyperlipidemia Stroke Social History Smoking and tobacco status: never smoked Alcohol intake: current Alcohol intake frequency: holidays/special occasions only Marital status: / Number of children: 2 Number of grandchildren: 3 service: No Current occupational status: unemployed and disabled Physical Exam Const: COMMON NORMALS: no acute distress and patient oriented x3 HENMT: COMMON NORMALS: normocephalic HEAD & SCALP: normocephalic OTHER: tenderness over right maxiallry sinus Eye: COMMON NORMALS: conjunctivae normal CONJUNCTIVA: Yes conjunctivae normal Neck/C-Spine: COMMON NORMALS: supple Chest: COMMONS NORMALS: normal inspection of the chest Resp: COMMON NORMALS: normal respiratory effort Cardio: COMMON NORMALS: regular rate RATE: regular rate GI: INSPECTION: Yes normal to inspection Extremity: COMMON NORMALS: normal to inspection Neuro: COMMON NORMALS: patient oriented x3 Psych: COMMON NORMALS: mental status grossly normal Skin: COMMON NORMALS: no rashes or lesions noted GENERAL SKIN EXAM: no rashes or lesions noted Course Vital Signs: Vital signs: Vital Signs Temperature 98.1 F 10/28/22 19:11 Pulse Rate 90 10/28/22 19:11 Respiratory Rate 20 H 10/28/22 19:11 Blood Pressure 159/98 10/28/22 19:11 Pulse Oximetry 95 10/28/22 19:11 Oxygen Delivery Me thod 10/28/22 19:11 MDM - URI/Sore Throat Medical Decision Making addendum to previous note with physical exam Lab Data Radiology Impressions Chest X-Ray 10/28/22 19:18 IMPRESSION: No acute findings. Discharge Plan Discharge Patient Disposition: Home Clinical Impression: Sinusitis Condition: Stable Prescriptions: New Naprosyn 500 mg tablet 500 mg PO BID PRN (Reason: pain) Qty: 20 0RF No Action pantoprazole 40 mg tablet,delayed release (DR/EC) 40 mg PO QAM Qty: 30 5RF baclofen 20 mg tablet 20 mg PO .qhs 30 Days Qty: 30 3RF calcium carbonate [Tums] 200 mg calcium (500 mg) tablet,chewable 200 mg PO BID 30 Days Qty: 60 5RF ondansetron 4 mg tablet,disintegrating See Rx Instructions .ROUTE .COMPLEX Qty: 20 0RF Dose Instruction: DISSOLVE 1 TABLET IN MOUTH EVERY 8 HOURS NEEDED FOR NAUSEA AND VOMITING Rx Instructions: DISSOLVE 1 TABLET IN MOUTH EVERY 8 HOURS NEEDED FOR NAUSEA AND VOMITING ketorolac 10 mg tablet See Rx Instructions .ROUTE .COMPLEX Qty: 20 0RF Dose Instruction: TAKE 1 TABLET BY MOUTH EVERY 6 HOURS FOR 5 DAYS NEEDED FOR MODERATE PAIN Rx Instructions: TAKE 1 TABLET BY MOUTH EVERY 6 HOURS FOR 5 DAYS NEEDED FOR MODERATE PAIN duloxetine [Cymbalta] 30 mg capsule,delayed release(DR/EC) 30 mg PO DAILY Qty: 30 2RF Discharge Orders: Discharge ED (Routine); Ordered 10/28/22 Ordered By: Desiree Bae Discharge Diet: Advance as tolerated Discharge Activity: Resume usual activity Patient Instructions: Sinusitis (ED) Coding Level of Care Code ED Sanitation Laborer for Francois Jaramillo
== END 2022-10-28 19:40 | disposition home or self-care (01) ==
PROVIDERS: Emergency Provider Emergency Medicine
DX: J32.9 Chronic sinusitis, unspecified (principal)
CPT/HCPCS: 71045; 96372; 99284; J1100